=== PATIENT | male | born 1970 | race Caucasian/White ===

== ENCOUNTER 2023-06-06 02:21 | Emergency (ER) | payer MEDICARE, SELFPAY ==
[2023-06-06] VITALS (22 sets, daily range): BP systolic 166–232; BP diastolic 77–122; PULSE 79–95; RESP 13–35; TEMP 36.3–36.6; O2SAT 93–98
--- NOTE | ~2023-06-06 | XR_ITS ---
EXAMINATION: XR chest 1V portable INDICATION: Chest pain and shortness of breath TECHNIQUE: Portable AP chest at 1458 hours COMPARISON: None available FINDINGS: There are patchy opacities throughout all lung zones, right greater than left. There is a s mall right pleural effusion. No pneumothorax identified. Cardiomegaly is noted. A nodular opacity pro jects in the right lung base. IMPRESSION: 1. Diffuse lung disease, consistent with pulmonary edema and/or pneumonia. 2. Nodular opacity of the right lung base which could be infectious or inflammatory. Radiographic fol low-up is recommended. 3. Small right pleural effusion. Reviewed, dictated and finalized at location A. IMPRESSION: 1. Diffuse lung disease, consistent with pulmonary edema and/or pneumonia. 2. Nodular opacity of the right lung base which could be infectious or inflamma tory. Radiographic follow-up is recommended. 3. Small right pleural effusion.
[2023-06-06] MEDS: ASPIRIN 81 MG CHEWABLE TABLET 324 MG PO (02:40)
[2023-06-06] MEDS: NITROGLYCERIN SL 0.4 MG TABLET SUBLINGUAL (02:41)
--- NOTE | 2023-06-06 02:51 | ED.GENADULT ---
HPI - General Adult General Chief complaint: Nausea/Vomiting/Diarrhea Stated complaint: nausea; vomiting Time Seen by Provider: 06/06/23 02:37 Source: patient Mode of arrival: ambulatory Limitations: no limitations History of Present Illness HPI narrative: Patient is a 53-year-old renal dialysis patient with a history of IgA nephropathy hypertension coronary artery disease and chronic cyclic vomiting complains of nausea vomiting diarrhea that started at 11:00 p.m. tonight associated with chest pain 10 out of pain. Patient complain of lower sternal chest pain and epigastric pain cramping comes and goes. patient took hot shower felt better. Went back to sleep and then woke up around 1:00 a.m. with pain again. He says he gets bouts of chronic cyclic vomiting every 6 weeks the last time was 3 months ago. He is here visiting a relative Lisa. He forgot his Zofran so did not take any Zofran and he is out of his oxycodone 15 mg that he takes 4 times a day as needed for pain he has been on that for 2 and half weeks. 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 He has been on Eliquis since then and Plavix. Has a history of hypertension is on Lopressor minoxidil carvedilol and hydralazine. Denies any shortness of breath or diaphoresis he has a chronic cough that is not changed any that he rates his pain as 8/10 denies pain in his extremities or his back or neck. Denies any problems eating drinking he has had 6 loose nonbloody stools in the last 24 hours. He has lost over 100 lb in the last 2 years he lost 20 lb this year. Denies any rash or itching lumps or bumps weakness or numbness or tingling sore throat runny nose bleeding or bruising. He does say he bruises easily . Denies any dizziness or lightheadedness. Denies any other complaints. Past medical history: Dialysis patient status post failed transplant chronic cyclic vomiting on amitriptyline IgA nephropathy, hypertension anemia history is mild stroke. Coronary artery disease with 2 stents placed in [facility] on Eliquis anticoagulation and Plavix. patient also had a nonresponsive event syncope where he passed out and woke up in the hospital. That was about 2 years ago. Primary care provider Jose Alfredo Felton MD. Stewarding Supervisor 1 Stefan MARIE. Denies any history of NC. Past surgical history kidney transplant kidney removed cholecystectomy parathyroid ectomy for cancer Related Data Home Medications Medication Instructions Recorded Confirmed Unable to Obtain Home Medications 06/06/23 06/06/23 Allergies Allergy/AdvReac Type Severity Reaction Status Date / Time No Known Allergies Allergy Verified 06/06/23 02:23 Exam Narrative: White Male patient no apparent distress looks older than stated age.? Head normocephalic, atraumatic.? Eyes conjunctiva pink sclera nonicteric.? Extraocular movements are intact.? Ears externally normal.? Oropharynx is clear with moist mucous membranes without exudates.? Neck is supple nontender no lymphadenopathy.? Back is nontender.? Lungs are clear.? Heart is regular rate and rhythm without murmurs gallops or rubs.? Chest wall is nontender.? Abdomen is soft and nontender no hepatosplenomegaly or masses no CVA tenderness no abdominal bruits.? The abdomen has a large amount of loose skin he has obviously lost weight of significant amount. Extremities no cyanosis clubbing or edema. He has an AV fistula in his left arm with a good palpable thrill.? Skin is warm and dry without rashes or lesions.? Neurological patient is alert and oriented x4.? Motor and sensory grossly intact.? Gait is normal. Course Vital Signs Vital signs: Vital Signs Temperature 36.3 C L 06/06/23 02:25 Pulse Rate 79 06/06/23 02:25 Respiratory Rate 35 H 06/06/23 02:25 Blood Pressure 232/117 H 06/06/23 02:25 Pulse Oximetry 98 06/06/23 02:25 Oxygen Delivery Room Air 06/06
[2023-06-06] MEDS: ONDANSETRON INJ 4 MG/2 ML VIAL IV PUSH (02:53)
[2023-06-06] MEDS: hydrALAZINE HCL 20 MG/ML VIAL 10 MG IV PUSH ×3 (02:54→04:11)
[2023-06-06 02:55] LABS: Hemoglobin 9.8 g/dL (14.0-18.0); Mean Corpuscular HGB Conc 33.8 g/dL (32.0-36.0); Mean Corpuscular Hemoglobin 30.8 pg (27.0-31.0); Mean Corpuscular Volume 91.2 fL (78.0-102.0); Mean Platelet Volume 9.2 fl (8.7-11.0); Platelet Count Result 168 K/mm3 (150-420); Red Blood Count 3.18 M/mm3 (4.70-6.10); Red Cell Distribution Width 13.9 % (11.6-14.4)
[2023-06-06] MEDS: MORPHINE SULFATE (*CRX) 4 MG/ML INJ IV PUSH ×3 (02:57→04:00)
[2023-06-06 03:10] LABS: INR 1.1; Partial Thromboplastin Time 27.8 SEC (23.90-30.70)
[2023-06-06 03:13] LABS: Albumin Level 3.1 g/dL (3.4-5.0); Alkaline Phosphatase 109 U/L (46-116); Anion Gap 7 mmol/L (8-16); Aspartate Amino Transferase 12 U/L (15-37); Bilirubin,Total 0.4 mg/dL (0.00-1.00); Blood Urea Nitrogen 84 mg/dL (7-18); Calcium 8.7 mg/dL (8.5-10.1); Carbon Dioxide 33 mmol/L (21-32); Chloride 97 mmol/L (98-108); Estimated CRCL calculation 10 ml/min; Estimated Glomerular Filt Rate 8; Glucose 111 mg/dL (70-99); Magnesium 1.9 mg/dL (1.8-2.4); Osmolality Calculated 310 mOsm/kg (285-295); Potassium 4.8 mmol/L (3.5-5.1); Sodium 137 mmol/L (136-145); Total Protein 7.1 g/dL (6.4-8.2)
[2023-06-06 03:14] LABS: Alanine Aminotransferase < 6 U/L (16-63)
[2023-06-06 03:15] LABS: Troponin I 185.8 ng/L (0.00-60.4)
--- NOTE | 2023-06-06 03:23 | PC.NURSE ---
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 He states his cardilogist is at [facility]. Pt wants transfer to [facility].
--- NOTE | 2023-06-06 04:02 | PC.NURSE ---
Pt visiting c family member, he still c/o pain at 8 in his stomach. Elevated BP noted and ERP aware of BP. POC discussed c pt and his family member. Awaiting call back from [facility] for transfer.
--- NOTE | 2023-06-06 04:05 | ECG_ITS ---
Measurements Intervals [place] Rate: 89 P: 29 SC: 192 QRS: -63 QRSD: 98 T: 87 QT: 401 QTc: 490 Interpretive Statements SINUS RHYTHM POSSIBLE LEFT ATRIAL ENLARGEMENT [-0.1mV P-WAVE IN V1/V2] PATTERN CONSISTENT WITH PULMONARY DISEASE INCOMPLETE RIGHT BUNDLE BRANCH BLOCK [90+ ms QRS DURATION, TERMINAL R IN V1/V2, 40+ ms S IN I/aVL/V4/V5/V6] LEFT ANTERIOR FASCICULAR BLOCK [QRS AXIS <= -45, QR IN I, RS IN II] LEFT VENTRICULAR HYPERTROPHY AND ST-T CHANGE [VOLTAGE CRITERIA PLUS ST/T ABNORMALITY] POSSIBLE SEPTAL MYOCARDIAL INFARCTION , OF INDETERMINATE AGE [30 ms Q WAVE IN V1/V2] ABNORMAL ECG COMPARED TO ECG 06/06/2023 02:49:54 NO SIGNIFICANT CHANGES Electronically Signed On 06-06-2023 12:44:12 CDT by Anish Posadas M.D.
[2023-06-06] MEDS: PANTOPRAZOLE SODIUM IV 40 MG VIAL IV PUSH (04:08)
[2023-06-06] MEDS: PROCHLORPERAZINE EDISYLATE 10 MG/2 ML VIAL IV PUSH (04:53)
[2023-06-06 04:54] LABS: Troponin I 205.2 ng/L (0.00-60.4)
--- NOTE | 2023-06-06 05:14 | PC.NURSE ---
Pt resting c family at bedside, lights dimmed, call back from transfer center [facility], will await call back from [facility] for bed placement.
--- NOTE | 2023-06-06 05:37 | ECG_ITS ---
Measurements Intervals [place] Rate: 87 P: 21 DE: 164 QRS: -57 QRSD: 104 T: 91 QT: 410 QTc: 496 Interpretive Statements SINUS RHYTHM INCOMPLETE RIGHT BUNDLE BRANCH BLOCK [90+ ms QRS DURATION, TERMINAL R IN V1/V2, 40+ ms S IN I/aVL/V4/V5/V6] LEFT ANTERIOR FASCICULAR BLOCK [QRS AXIS <= -45, QR IN I, RS IN II] LEFT VENTRICULAR HYPERTROPHY AND ST-T CHANGE [VOLTAGE CRITERIA PLUS ST/T ABNORMALITY] POSSIBLE SEPTAL MYOCARDIAL INFARCTION , OF INDETERMINATE AGE [30 ms Q WAVE IN V1/V2] ABNORMAL ECG Electronically Signed On 06-06-2023 12:43:58 CDT by Anish Posadas M.D.
--- NOTE | 2023-06-06 06:32 | PC.NURSE ---
Pt sleeping, VSS at this time. Monitor showing NSR, awaiting call from [facility] for bed assignment.
== END 2023-06-06 07:37 | disposition short-term general hospital (02) ==
PROVIDERS: Emergency Provider Emergency Medicine
DX: I21.4 Non-ST elevation (NSTEMI) myocardial infarction (principal); I10 Essential (primary) hypertension; R11.15 Cyclical vomiting syndrome unrelated to migraine; I25.10 Atherosclerotic heart disease of native coronary artery without angina pectoris; Z79.01 Long term (current) use of anticoagulants
CPT/HCPCS: 36415; 71045; 80053; 83735; 84484; 85027; 85610; 85730; 93005; 96374; 96375; 96376; 99285; A9270; C9113; J0360; J0780; J2270; J2405